=== PATIENT | male | born 1950 | race Caucasian/White ===

== ENCOUNTER 2018-07-12 18:44 | Emergency (ER) | payer MEDICARE, BC ==
[2018-07-12 19:26] VITALS: RESP 16; TEMP 98
[2018-07-12 19:34] LABS: APPEARANCE,URINE Turbid; BILIRUBIN,URINE 2+ (NEGATIVE); COLOR,URINE Red; GLUCOSE, URINE (UA) NEGATIVE (NEGATIVE); KETONES,URINE TRACE (NEGATIVE); LEUKOCYTE ESTERASE ,URINE 3+ (NEGATIVE); NITRATE,URINE POSITIVE (NEGATIVE); OCCULT BLOOD,URINE 3+ (NEG-TRACE)
[2018-07-12 19:39] LABS: ICTOTEST,URINE NEGATIVE (NEGATIVE); RBC,URINE TNTC (0-3AV/HPF); WBC,URINE 15-20 (0-5AV/HPF)
[2018-07-12 19:40] LABS: BACTERIA 1+ (< 1+); CRYSTALS NEGATIVE (0-3 AVE/HPF)
[2018-07-12 22:11] LABS: BASOPHILS % (AUTO) 0 % (0-3); EOSINOPHILS % (AUTO) 0 % (0-9); HEMATOCRIT 45 % (39-53); HEMOGLOBIN 15.4 gm/dl (13.5-17.7); LYMPHOCYTES % (AUTO) 6.8 % (10-50); MEAN CORPUSCULAR HEMOGLOBIN 31.1 pg (27.0-32.0); MEAN CORPUSCULAR VOLUME 92 fL (80-100); MONOCYTES % (AUTO) 8.9 % (0-12); NEUTROPHILS % (AUTO) 83.8 % (37-80)
[2018-07-12 22:13] LABS: LACTIC ACID 0.9 mMol/L (0.0-2.0)
[2018-07-12 22:21] LABS: INR 2.38 (0.86-1.12)
[2018-07-12 22:24] LABS: ALBUMIN 3.8 gm/dl (3.4-5.0); CALCIUM 8.9 mg/dl (8.5-10.1); CARBON DIOXIDE 27.7 mEq/L (21-32); CREATININE 1.02 mg/dl (0.80-1.30); POTASSIUM 4.3 mMol/L (3.5-5.1); TOTAL PROTEIN 7.5 gm/dl (6.4-8.2)
[2018-07-12] MEDS ORDERED: LEVOFLOXACIN 500 MG TAB PO ONE (22:32)
[2018-07-12] MEDS ORDERED: LEVOFLOXACIN 500 MG TAB ONE (22:46)
[2018-07-13 00:34] VITALS: BP 125/82; PULSE 88; O2SAT 95
== END 2018-07-12 22:59 | disposition home or self-care (01) | DRG 690 ==
LOC: ED 18:44
DX: N39.0 Urinary tract infection, site not specified (principal); R31.9 Hematuria, unspecified; Z79.01 Long term (current) use of anticoagulants; E03.9 Hypothyroidism, unspecified
CPT/HCPCS: 36415; 80053; 81001; 84443; 85025; 85610; 85730; 87077; 87088; 87186; 99282; A9270-GY